=== PATIENT | male | born 1970 | race Caucasian/White ===

== ENCOUNTER 2019-02-25 09:03 | Day surgery (SDC) | payer BC ==
[~2019-02-25] VITALS: Ht 177.8 cm; Wt 84.8 kg
[2019-02-25] VITALS (16 sets, daily range): BP systolic 91–121; BP diastolic 56–83; PULSE 55–81; TEMP 97.3–97.5
[~2019-02-25 09:03] MED LIST: NEXIUM 40MG40 MG PO
[2019-02-25] MEDS ORDERED: AMBIEN 10MG10 MG PO (10:12)
[2019-02-25] MEDS ORDERED: PROBIOTIC FORMU1 CAP PO (10:13)
--- NOTE | 2019-02-25 10:17 | NUR ---
TO BAY4, CALL LIGHT IN REACH AT BEDSIDE.
[2019-02-25] MEDS ORDERED: PROTONIX 40MG T40 MG (10:46)
--- NOTE | 2019-02-25 11:15 | NUR ---
Patient arrives to post-op bay 4 via cart, accompanied by Endo RN Frances. Bedside report received. Patient is alert and oriented. He ambulates with standby assist to chair in room. Monitoring applied - VSS and WNL on room air. Family at the bedside. Offered and receives water to drink. Call light in reach. Denies any nausea/pain. Will continue to monitor.
--- NOTE | 2019-02-25 11:30 | NUR ---
Patient is resting comfortably in room. Denies any pain, nausea, or need.
--- NOTE | 2019-02-25 11:45 | NUR ---
Patient resting comfortably in room. Denies any pain or nausea.
--- NOTE | 2019-02-25 12:00 | NUR ---
Dr. Sánchez at the bedside and talks with the patient and his family.
--- NOTE | 2019-02-25 12:15 | NUR ---
Patient's BP has decreased. Notified Dr. Sánchez of patient's BP of 91/56. Recieved order for more IVF.
--- NOTE | 2019-02-25 13:00 | NUR ---
Patient reports that he vomited a small amount of emesis into nausea bag. Patient state that he feels better after vomiting. Blood pressure starting to go up at this time.
--- NOTE | 2019-02-25 13:37 | NUR ---
Patient requested that we notify Dr. Sánchez's clinic that they would like to be considered for anesthesia associates to provide sedation for his next procedure due to his nausea/vomiting in recovery. Notified the clinic and they placed a flag on his chart for discussion if another procedure is needed.
--- NOTE | 2019-02-25 14:16 | NUR ---
Notified Dr. Sánchez of patient's fluctuating BP. VORB to have patient ambulate in halls and monitor for any symptoms. Patient ambulates halls and is asymptomatic. Dr. Sánchez will come to room to talk with patient following his next case.
--- NOTE | 2019-02-25 14:30 | NUR ---
VSS and WNL on room air. Patient up to use restroom at this time.
--- NOTE | 2019-02-25 15:35 | NUR ---
Discharge instructions discussed, denies any questions, and verbalizes understanding. Changes to clothing independently. Escorted to exit via wheelchair. Discharged to home with ride in private vehicle at 1535.
== END 2019-02-25 15:35 | disposition home or self-care (01) ==
LOC: SDCO 09:03
DX: K57.30 Diverticulosis of large intestine without perforation or abscess without bleeding (principal); K21.0 Gastro-esophageal reflux disease with esophagitis; R19.7 Diarrhea, unspecified; K44.9 Diaphragmatic hernia without obstruction or gangrene; K29.30 Chronic superficial gastritis without bleeding; K22.2 Esophageal obstruction
CPT/HCPCS: OP; J2250; J2405; J2550; J3010; J7030

== ENCOUNTER → 2019-03-18 | Outpatient (CLI) | payer BC ==
[~2019-03-18] MED LIST changes: +AMBIEN 10MG10 MG PO; +PROBIOTIC FORMU1 CAP PO; +PROTONIX 40MG T40 MG
== END ==
LOC: COL.RAD 07:53
DX: K44.9 Diaphragmatic hernia without obstruction or gangrene (principal); R10.9 Unspecified abdominal pain; R14.2 Eructation; R14.0 Abdominal distension (gaseous); R10.13 Epigastric pain; R12 Heartburn
CPT/HCPCS: A9541